=== PATIENT | male | born 1950 | race Caucasian/White ===

== ENCOUNTER 2018-03-27 07:28 | Day surgery (SDC) | payer OTHER, BC ==
[2018-03-20 16:58] VITALS: BMI 25.8
[2018-03-27] MEDS ORDERED: PROPOFOL 20 ML ONE (07:58)
[2018-03-27 08:02] VITALS: TEMP 98.2
[2018-03-27 09:34] VITALS: BP 102/69; PULSE 63
--- NOTE | 2018-03-28 17:30 | PATH ---
Surgical Pathology Report Patient Name: HUNG EM [facility]. Rec. #: [id number] /Age/Gender: 1950 (Age: 67) / M Account: [id number] Location: [facility] Taken: 03/27/2018 Received: 03/27/2018 Reported: 03/28/2018 Physicians: Rj Delgado M.D. Specimen(s) Received PROXIMAL RIGHT COLON POLYP Clinical History Rule out colon cancer Postoperative diagnosis: Colon polyp Final Diagnosis PROXIMAL COLON, RIGHT, POLYP, POLYPECTOMY: TUBULAR ADENOMA. Electronically Signed Yenifer Lutz M.D. Gross Description Received in formalin, labeled "proximal right colon polyp" are 4 bowles, irregular portions of soft tissue ranging from 0.3-0.5 cm. in greatest dimension. The specimens are submitted in toto in one cassette. 03/27/201803/27/2018
== END 2018-03-27 09:35 | disposition home or self-care (01) ==
LOC: FASU-ENDO 07:28
PROVIDERS: ATTEND Internal Medicine Gastroenterology
PROC: 0DBK8ZX Excision of Ascending Colon, Via Natural or Artificial Opening Endoscopic, Diagnostic (ICD-10-PCS; principal; 2018-03-27 08:00)
DX: Z12.11 Encounter for screening for malignant neoplasm of colon (principal); D12.2 Benign neoplasm of ascending colon
CPT/HCPCS: 88305-TC

== ENCOUNTER 2022-12-25 09:56 | Day surgery (SDC) | payer OTHER, BC ==
[2022-12-21 11:41] VITALS: BMI 26.3
[2022-12-25 12:18] VITALS: PULSE 55; RESP 16; TEMP 96.6
[2022-12-25 12:28] VITALS: BP 120/71
== END 2022-12-25 12:28 | disposition home or self-care (01) ==
LOC: FASU-ENDO 09:56
PROVIDERS: ATTEND Internal Medicine Gastroenterology
PROC: 0DBH8ZX Excision of Cecum, Via Natural or Artificial Opening Endoscopic, Diagnostic (ICD-10-PCS; 2022-12-25)
PROC: 0DBK8ZX Excision of Ascending Colon, Via Natural or Artificial Opening Endoscopic, Diagnostic (ICD-10-PCS; principal; 2022-12-25 11:39)
DX: Z12.11 Encounter for screening for malignant neoplasm of colon (principal); D12.0 Benign neoplasm of cecum; K63.5 Polyp of colon; K57.30 Diverticulosis of large intestine without perforation or abscess without bleeding; Z86.010 Personal history of colon polyps
CPT/HCPCS: 88305-TC